=== PATIENT | female | born 1985 | race Caucasian/White ===

== ENCOUNTER 2020-08-10 14:54 | Emergency (ER) | payer OTHER, SELFPAY ==
[2020-08-10 15:16] VITALS: BP 118/72; PULSE 90; RESP 16; TEMP 37.7; O2SAT 100
--- NOTE | 2020-08-10 16:04 | ED.FEMALEGU ---
HPI - Female Genitourinary General Chief complaint: Urogenital-Female Stated complaint: uti Time Seen by Provider: 08/10/20 16:04 Source: patient Mode of arrival: ambulatory Limitations: no limitations History of Present Illness HPI Narrative: Ibeth Chamberlain is a 35 yo female with a PMH of anxiety who comes to express care with foul smelling urine and dysuria that started 2 days ago. Today she has burning and difficulty with urination She denies any back pain or abdominal pain, no nausea vomiting or diarrhea Related Data Home Medications Medication Instructions Recorded Confirmed escitalopram oxalate [Lexapro] 60 mg PO DAILY 08/10/20 08/10/20 lamotrigine [Lamictal] 100 mg PO DAILY 08/10/20 08/10/20 Review of Systems Review of Systems: Narrative: CONSTITUTIONAL: Denies fever, chills, sweats. EYES: Denies visual changes, redness, discharge. ENT: Denies rhinorrhea, congestion, sore throat, otalgia. CARDIOVASCULAR: Denies chest pain, palpitations, edema. RESPIRATORY: Denies dyspnea, wheezing, cough GASTROINTESTINAL: Denies abdominal pain, nausea, vomiting, diarrhea. GENITOURINARY has dysuria, hematuria, abnormal discharge SKIN: Denies rash or itching. NEUROLOGIC: Denies numbness, or focal weakness. PSYCHIATRIC: Denies anxiety or depression. [facility] Past Medical History Medical History Anxiety Family History Family History (Updated 08/10/20 @ 16:20 by Brenda Whitley CNP) Other No acute medical problems Social History Social History (Updated 08/10/20 @ 16:21 by Brenda Whitley CNP) Smoking status: Never smoker Alcohol intake: current Comments At time of signature, I agree with nursing past medical, surgical, social and family history. There is no relevant family history pertinent to the presenting complaint. Exam Narrative: Exam Narrative: GENERAL: This is a well-nourished, well-developed patient, in mild distress. HEAD: normocephalic, atraumatic. EYES: Sclera clear/white. Vision is grossly intact. EARS: External ears normal, Hearing grossly intact. NOSE: External nose normal without nasal discharge, nares without redness, no rhinorrhea. THROAT: Mucous membranes moist, NECK: Neck supple, CARDIOVASCULAR: Regular rate and rhythm without murmurs, gallops, or rubs. RESPIRATORY: Clear to auscultation. Breath sounds equal bilaterally. No wheezes, rales, or rhonchi. GASTROINTESTINAL: Abdomen soft, non-tender, SKIN: warm, intact with no suspicious lesions or rash, good texture and turgor. NEURO: awake, alert, and oriented to person, place and time. There were no obvious focal neurologic abnormalities. Steady gait EXTREMITIES: Normal range of motion. Has pain in left heel particularly first thing in the morning, is directly over Achilles tendon attachment BACK: Nontender without deformity Course Course Emergency Course: Patient comes to express care for urinary dysuria for 2 days and pain in left heel patient has leukocytes in her dipstick-started on Keflex Given exercises for for tendinitis of the heel-recommend 600 mg of ibuprofen in the morning or Voltaren ointment to the area and stretch foot before getting up, wear supportive shoes Follow-up with PCP Vital Signs Vital signs: Vital Signs Temperature 99.9 F H 08/10/20 15:16 Pulse Rate 90 08/10/20 15:16 Respiratory Rate 16 08/10/20 15:16 Blood Pressure 118/72 08/10/20 15:16 Pulse Oximetry 100 08/10/20 15:16 Temperature 99.9 F H 08/10/20 15:16 Pulse Rate 90 08/10/20 15:16 Respiratory Rate 16 08/10/20 15:16 Blood Pressure 118/72 08/10/20 15:16 Pulse Oximetry 100 08/10/20 15:16 MDM - Female Genitourinary Differential Diagnosis Differential diagnosis: Likely urinary tract infection, cystitis and other (Heel pain) Lab Data Labs: Urine Glucose Negative Reference Range: Negative Urine
== END 2020-08-10 16:26 | disposition home or self-care (01) ==
PROVIDERS: Emergency Provider Nurse Practitioner
DX: R30.0 Dysuria (principal); M77.9 Enthesopathy, unspecified; F41.9 Anxiety disorder, unspecified
CPT/HCPCS: 81003; 87077; 87086; 87088; 87186; 99213; G0463

== ENCOUNTER → 2022-02-24 14:36 | Outpatient (REF) | payer OTHER, SELFPAY | LOC: ANHLAB 14:36 | PROVIDERS: Visit Provider Nurse Practitioner | DX: D49.2 Neoplasm of unspecified behavior of bone, soft tissue, and skin (principal) | CPT/HCPCS: 88305 ==